=== PATIENT | female | born 1985 | race Caucasian/White ===

== ENCOUNTER 2016-03-29 07:06 | Inpatient (IN) ==
[2016-03-29 07:47] LABS: URINE SOURCE VOIDED
[2016-03-29 07:54] LABS: UR AMPHETAMINES QUAL NONE DETECTED (NONE DETECT); UR BARBITUATES QUAL NONE DETECTED (NONE DETECT); UR BENZODIAZEPIN QUAL NONE DETECTED (NONE DETECT); UR CANNABINOIDS QUAL NONE DETECTED (NONE DETECT); UR COCAINE QUAL NONE DETECTED (NONE DETECT); UR MDMA QUAL NONE DETECTED (NONE DETECT); UR METHADONE QUAL NONE DETECTED (NONE DETECT); UR METHAMPHETAMINE QUAL NONE DETECTED (NONE DETECT); UR OPIATES QUAL NONE DETECTED (NONE DETECT); UR OXYCODONE QUAL NONE DETECTED (NONE DETECT); UR PCP QUAL NONE DETECTED (NONE DETECT); UR TCA QUAL NONE DETECTED (NONE DETECT)
[2016-03-29 07:55] LABS: BILIRUBIN URINE NEGATIVE (NEGATIVE); BLOOD URINE 1+ (NEGATIVE); CLARITY CLEAR (CLEAR); COLOR YELLOW; GLUCOSE URINE NEGATIVE (NEGATIVE); LEUKOCYTES URINE 1+ (NEGATIVE); NITRITE URINE NEGATIVE (NEGATIVE); PROTEIN URINE NEGATIVE (NEGATIVE); SP GRAVITY URINE 1.005; UROBILINOGEN URINE NORMAL
[2016-03-29] MEDS ORDERED: ZOFRAN IV PRN (09:06)
[2016-03-29] MEDS ORDERED: AMPICILLIN 2 GM/NS 100 ML IV ONE (09:06)
[2016-03-29] MEDS ORDERED: TYLENOL PO PRN (09:06)
[2016-03-29] MEDS ORDERED: PEPCID IV PRN (09:06)
[2016-03-29] MEDS ORDERED: KEFZOL 1 GM/D5W 50 ML IV PRN (09:06)
[2016-03-29] MEDS ORDERED: PEPCID PO PRN (09:06)
[2016-03-29] MEDS ORDERED: REGLAN PO ONE (09:06)
[2016-03-29] MEDS ORDERED: LR 500 ML IV ONE (09:06)
[2016-03-29] MEDS ORDERED: STADOL IV PRN (09:06)
[2016-03-29] MEDS ORDERED: PEPCID PO ONE (09:06)
[2016-03-29] MEDS ORDERED: LR 1,000 ML IV SCH (09:15)
[2016-03-29] MEDS ORDERED: PITOCIN 30 UNITS/LR 500 ML IV SCH (09:15)
[2016-03-29] MEDS ORDERED: SODIUM CHLORIDE 0.9% INJ SCH (09:15)
[2016-03-29] MEDS ORDERED: XYLOCAINE-MPF 1% ONE (09:27)
[2016-03-29 09:53] LABS: MANUAL DIFF NEEDED? NO
[2016-03-29 09:54] LABS: BASO% 0.1 % (0.0-0.8); EOS# 0.07 X1000 (0.0-0.7); EOS% 0.6 % (0.0-10.0); HEMATOCRIT 32.2 % (37.0-47.0); HEMOGLOBIN 11.2 g/dL (12.0-16.0); IMM GRAN# 0.06 X1000 (0.0-0.04); IMM GRAN% 0.5 % (0.0-0.5); LYMPH# 2.22 X1000 (1.2-3.4); LYMPH% 18.9 % (20.5-51.1); MCH 30.7 PG (27-31); MCHC 34.8 g/dL (33-37); MCV 88.2 FL (81-99); MONO# 0.84 X1000 (0.11-0.59); MONO% 7.1 % (1.7-9.3); NEUT% 72.8 % (42.2-75.2); PLT 290 X1000 (130-400); RBC 3.65 XMIL (4.2-5.4)
[2016-03-29] MEDS ORDERED: AMPICILLIN 1 GM/NS 50 ML IV SCH (13:07)
[2016-03-29] MEDS ORDERED: PITOCIN 20 UNITS/LR 1,000 ML ONE (13:21)
[2016-03-29] MEDS ORDERED: PERI MEDS (DERMOPLAST/NUPERCAINAL/TUCKS) MISC PRN (13:46)
[2016-03-29] MEDS ORDERED: BUSPAR PO PRN (13:46)
[2016-03-29] MEDS ORDERED: CYTOTEC PO PRN (13:46)
[2016-03-29] MEDS ORDERED: BENADRYL IV PRN (13:46)
[2016-03-29] MEDS ORDERED: M-M-R II VACCINE SUBQ ONE (13:46)
[2016-03-29] MEDS ORDERED: AMBIEN PO PRN (13:46)
[2016-03-29] MEDS ORDERED: PITOCIN IM PRN (13:46)
[2016-03-29] MEDS ORDERED: PITOCIN 20 UNITS/LR 1,000 ML IV SCH (13:46)
[2016-03-29] MEDS ORDERED: BENADRYL PO PRN (13:46)
[2016-03-29] MEDS ORDERED: HYDROXYZINE PO PRN (13:46)
[2016-03-29] MEDS ORDERED: XYLOCAINE-MPF 1% INJ PRN (13:46)
[2016-03-29] MEDS ORDERED: PITOCIN 30 UNITS/LR 500 ML IV ONE (13:46)
[2016-03-29] MEDS ORDERED: NORCO-5 PO PRN (13:46)
[2016-03-29] MEDS ORDERED: MINERAL OIL MISC PRN (13:46)
[2016-03-29] MEDS ORDERED: BOOSTRIX VACCINE IM ONE (13:46)
[2016-03-29] MEDS ORDERED: HYDROXYZINE IM PRN (13:46)
--- NOTE | 2016-03-29 16:31 | OPERATIVE NOTE ---
PROCEDURE DATE: 03/29/2016 PRE DELIVERY DIAGNOSES: 1. Intrauterine at 35 and 6. 2. labor. 3. History of herpes simplex virus. POST DELIVERY DIAGNOSES: 1. Intrauterine at 35 and 6. 2. labor. 3. History of herpes simplex virus. 4. Vaginal delivery. PHYSICIAN: Ulises. ANESTHESIA: None. FINDINGS: Viable female . Do not have weight or Apgars at this time. There was a right labial laceration repaired with 3-0 Polysorb interrupted. Cord was 3 vessels. Placenta was spontaneous, intact. ESTIMATED BLOOD LOSS: 100 mL. COUNTS: All counts were correct. Ms. Cancino is a 30-year-old 3, para 1, at 35 and 5, who presented in active labor. She was started on antibiotics for GBS prophylaxis, for unknown GBS. She had been taking acyclovir the last 3 days but did not notice any outbreaks. She was allowed to progress in labor, became complete, began pushing. She delivered a viable female infant, occiput anterior, over an intact perineum. Once head delivered, shoulders and rest of the body delivered without difficulty. The infant was placed on mother's abdomen. Cord was doubly clamped and cut. Care of infant was then taken over by nursery personnel. Cord blood was obtained. Three-vessel cord was noted. Gentle traction resulted in delivery of the placenta after approximately 4 minutes. It was inspected and found to be intact. Inspection of the perineum revealed a right labial laceration, repaired with 3-0 Polysorb interrupted. Once this was done, vaginal sweep was done. There were no clots or foreign material. Count was done, there was 1 needle for local anesthetic, and then there was 1 suture needle, then there were 10 [employer]s counted, and 1 vag pack, so all counts were correct. Estimated blood loss 100 mL. Expect routine .
[2016-03-29] MEDS: MOTRIN PO PRN (17:28)
[2016-03-29] MEDS: NORCO-10 PO PRN ×2 (17:28→20:53)
[2016-03-30] MEDS: NORCO-10 PO PRN ×4 (05:55→21:29)
[2016-03-30] MEDS: MOTRIN PO PRN ×3 (05:55→21:29)
[2016-03-30 06:25] LABS: MANUAL DIFF NEEDED? NO
[2016-03-30 06:35] LABS: BASO% 0.2 % (0.0-0.8); EOS# 0.11 X1000 (0.0-0.7); EOS% 0.8 % (0.0-10.0); HEMATOCRIT 32.6 % (37.0-47.0); IMM GRAN# 0.04 X1000 (0.0-0.04); IMM GRAN% 0.3 % (0.0-0.5); LYMPH# 2.81 X1000 (1.2-3.4); LYMPH% 20.8 % (20.5-51.1); MCH 30.3 PG (27-31); MCHC 33.7 g/dL (33-37); MCV 89.8 FL (81-99); MONO# 1.01 X1000 (0.11-0.59); MONO% 7.5 % (1.7-9.3); MPV 9.5 FL (7.4-10.4); NEUT% 70.4 % (42.2-75.2); PLT 290 X1000 (130-400); RBC 3.63 XMIL (4.2-5.4)
[2016-03-30] MEDS ORDERED: BUSPAR PO PRN (07:41)
[2016-03-30] MEDS: PRECARE PO SCH (09:06)
--- NOTE | 2016-03-30 12:27 | PROGRESS NOTE ---
DATE: 03/30/2016 SUBJECTIVE: She is day 1. She is without complaints. OBJECTIVE: Vital signs stable. She is afebrile. Physical examination within normal limits. LABS: Hemoglobin and hematocrit . ASSESSMENT: day 1. PLAN: Expect routine care and discharge in the morning.
[2016-03-30] MEDS: MUCINEX D PO SCH (13:48)
[2016-03-30] MEDS: PERICOLACE PO SCH (21:29)
[2016-03-31] MEDS: MUCINEX D PO SCH ×2 (00:21→10:53)
[2016-03-31] MEDS: NORCO-10 PO PRN ×4 (00:21→14:08)
[2016-03-31 08:22] VITALS: BP 113/66
[2016-03-31] MEDS: MOTRIN PO PRN (10:52)
[2016-03-31] MEDS: PRECARE PO SCH (10:52)
--- NOTE | 2016-03-31 19:34 | DISCHARGE SUMMARY ---
ADMISSION DATE: 03/29/2016 DISCHARGE DATE: 03/31/2016 ADMISSION DIAGNOSIS: Intrauterine at 35+ 6 weeks. SECONDARY DIAGNOSIS: labor, history of herpes simplex virus. PRINCIPAL PROCEDURE: Normal spontaneous vaginal delivery. HOSPITAL COURSE: The patient was admitted on 03/29/2016 and found to be in active labor. She had been taking acyclovir for herpes simplex, however, there are no lesions noted. On 03/29/2016 at 12:59 p.m. the patient delivered a viable female infant, weight 6 pounds 12 ounces. Apgars 9 and 10. Patient was subsequently transferred when mother/baby were deemed stable and care has been uneventful and remained uneventful. Patient Her pain is well controlled and she is ambulating without assistance. The patient is stable for discharge on day #2. CONDITION ON DISCHARGE: Stable. ELIMINATION CAPACITY: Independent. Feeding capacity independent. Locomotion capacity independent. Rehab potential good. Prognosis good. DISCHARGE MEDICATIONS: [place] 5 mg 1 tab p.o. q.4-6 hours p.r.n. pain. DIET: The patient to maintain a regular diet. PHYSICAL ACTIVITY: As tolerated. Pelvic rest x6 weeks. DISCHARGE INSTRUCTIONS: The patient is ordered to call or return if fever greater than 100.4, heavy vaginal bleeding, foul smelling vaginal discharge or any other acute changes. She is to be discharged home with orders to follow up with Dr. Montgomery in 6 weeks.
== END 2016-03-31 14:50 | disposition home or self-care (01) | DRG 774 ==
LOC: P.OPLD 07:06 → P.LD 07:06 → P.OPLD 08:55 → P.LD 08:57
PROVIDERS: ADMIT Obstetrics & Gynecology; ATTEND Obstetrics & Gynecology
PROC: 10E0XZZ Delivery of Products of Conception, External Approach (ICD-10-PCS; principal; 2016-03-29)
PROC: 0UQMXZZ Repair Vulva, External Approach (ICD-10-PCS; 2016-03-29)
DX: O60.14X0 Preterm labor third trimester with preterm delivery third trimester, not applicable or unspecified (principal); O98.513 Other viral diseases complicating pregnancy, third trimester; B00.9 Herpesviral infection, unspecified; O70.0 First degree perineal laceration during delivery; Z37.0 Single live birth; Z3A.35 35 weeks gestation of pregnancy
CPT/HCPCS: 36415; 59025; 81003; 85025; 86592; J0290; J0595; J2590; J7120